=== PATIENT | female | born 1965 | race Caucasian/White ===

== ENCOUNTER 2017-05-29 09:06 | Outpatient (CLI) | payer BC ==
[~2017-05-29] VITALS: Ht 167.6 cm; Wt 63.0 kg
[~2017-05-29 09:06] MED LIST: ALPR.25T PO; BUTA1TAB55 PO; EST025TD PO; NFTRIAZ.25 PO
[2017-05-29] MEDS ORDERED: SUMA100T2 PO (09:52)
[2017-05-29] MEDS ORDERED: ZOLP10TA PO (09:52)
[2017-05-29] MEDS ORDERED: ALPR0.5T7 PO (09:52)
[2017-05-29] MEDS ORDERED: ESTR2TAB PO (09:52)
== END 2017-05-29 09:54 ==
LOC: PREOP 09:06
PROVIDERS: ATTEND Surgery
DX: Z01.818 Encounter for other preprocedural examination (principal); Z12.11 Encounter for screening for malignant neoplasm of colon

== ENCOUNTER 2017-05-31 12:05 | Day surgery (SDC) | payer BC ==
[~2017-05-31] VITALS: Ht 167.6 cm; Wt 63.0 kg
[~2017-05-31 12:05] MED LIST changes: +ALPR0.5T7 PO; +ESTR2TAB PO; +SUMA100T2 PO; +ZOLP10TA PO
[2017-05-31 12:10] VITALS: BP 131/89
--- OUTSIDE RECORDS SUMMARY | 2017-05-31 12:10 | XMS REPORT ---
Author Author MEERA GOLDBERG Organization [employer] Address Unknown Phone Unavailable Care Team Providers Care Acidizer Name Role Phone MEERA GOLDBERG CP Unavailable Allergies No Known Allergies Problems Problem Type Condition ICD-9 Code Onset Dates Condition Status Assessment Dental examination V72.2 Active Medications No Known Medications Procedures Procedure Coding System Code Date Periodontal maint procedures CPT-4 D4910 Feb 25, 2015 TOPICAL FLUORIDE VARNISH CPT-4 D1206 Feb 25, 2015 Results No Known Results Summary Purpose [employer] Submission
--- OUTSIDE RECORDS SUMMARY | 2017-05-31 12:10 | XMS REPORT ---
Author Author MEENA OBREGON Organization [employer] Address Unknown Phone Unavailable Care Team Providers Care Golf Cart Attendant Name Role Phone MEENA OBREGON Unavailable Allergies No Known Allergies Problems Problem Type Condition Code Onset Dates Condition Status Problem Encounter for dental examination Z01.20 Active Medications Medication Code System Code Instructions Start Date End Date Status Dosage Ibuprofen [facility] [address]-69 600 MG Orally every 6 hours October 31, 2015 1 tablet Results No Known Results Summary Purpose [employer] Submission
--- OUTSIDE RECORDS SUMMARY | 2017-05-31 12:10 | XMS REPORT ---
Author Author ANGELES MCINTYRE [facility] Address [address] [address] Phone Unavailable Care Team Providers Care Parking Enforcer Name Role Phone ANGELES MCINTYRE Unavailable Unavailable PROBLEMS Type Condition ICD9-CM Code GNE06-OS Code Onset Dates Condition Status SNOMED Code Problem Encounter for dental examination Z01.20 Active 418676717 Assessment Dental examination Z01.20 Feb, Active [id number] ALLERGIES Substance Reaction Event Type Date Status N.K.D.A. Unknown Non Drug Allergy Feb, Unknown SOCIAL HISTORY No smoking Hx information available PLAN OF CARE VITAL SIGNS Blood pressure systolic 114 mmHg 2016-02-17 Blood pressure diastolic 76 mmHg 2016-02-17 MEDICATIONS Medication Instructions Dosage Frequency Start Date End Date Duration Status Imitrex 100 MG Orally Twice a day 1 tablet as needed 12h Active Estradiol 2 MG Orally Once a day 1 tablet 24h Active Ibuprofen 600 MG Orally every 6 hours 1 tablet 6h October, Active RESULTS No Results PROCEDURES Procedure Date Ordered Related Diagnosis Body Site Periodontal maint procedures Feb 17, 2016 TOPICAL FLUORIDE VARNISH Feb 17, 2016 IMMUNIZATIONS No Known Immunizations
--- OUTSIDE RECORDS SUMMARY | 2017-05-31 12:10 | XMS REPORT ---
Author Author MEENA OBREGON Organization [employer] Address Unknown Phone Unavailable Care Team Providers Care Basic Acoustic Analyst Name Role Phone MEENA OBREGON CP Unavailable Allergies No Known Allergies Problems Problem Type Condition Code Onset Dates Condition Status Assessment Migraine aura, persistent, intractable G43.519 Active Problem Encounter for dental examination Z01.20 Active Medications Medication Code System Code Instructions Start Date End Date Status Dosage Imitrex [facility] [address]-74 25 MG Orally Twice a day October 31, 2015 1 tablet as needed Results No Known Results Summary Purpose [employer] Submission
--- NOTE | 2017-05-31 12:13 | Progress Note-Pre Operative ---
Pre-Operative Progress Note H&P Reviewed The H&P was reviewed, patient examined and no changes noted. Date Seen by Provider: May 31, 2017 Time Seen by Provider: 12:10 Date H&P Reviewed: May 31, 2017 Time H&P Reviewed: 12:10 Pre-Operative Diagnosis: screening colonoscopy JITENDRA VALVERDE MD May 31, 2017 12:13 pm
--- NOTE | 2017-05-31 12:13 | Conscious Sedation/ASA ---
Conscious Sedation Pre-Proced Time Reviewed: 12:10 ASA Class: 2 Airway Mallampati Classification: (bad river band appropriate class) I. II. III, IV Lungs Heart ASA score ASA 1: a normal healthy patient ASA 2: a patient with a mild systemic disease (mid diabetes, controlled hypertension, obesity ASA 3: a patient with a severe systemic disease that limits activity (angina , COPD, prior Myocardial infarction) ASA 4: a patient with an incapacitating disease that is a constant threat to life (CHF, renal failure) ASA 5: a moribund patient not expected to survive 24 hrs. (ruptured aneurysm) ASA 6: a declared brain patient whose organs are being harvested. For emergent operations, add the letter E after the classification Grade 2 Sedation Plan: Analgesia, Amnesia, Plan communicated to team members, Discussed options with patient/fam, Discussed risks with patient/fam Note The patient is an appropriate candidate to undergo the planned procedure, sedation, and anesthesia. The patient immediately re-assessed prior to indication. JITENDRA VALVERDE MD May 31, 2017 12:13 pm
[2017-05-31] MEDS ORDERED: LIDOCAINE JELLY 2% (XYLOCAINE) 5 ML TUBE MM PRN (12:15)
[2017-05-31] MEDS ORDERED: NS IV 500 ML 500 ML IV PRN (12:15)
[2017-05-31] MEDS ORDERED: morphine INJ 10 MG/ML 1ML (SYR OR VIAL) IV PRN (12:15)
[2017-05-31] MEDS ORDERED: ONDANSETRON 4 MG/2 ML (SDV) Z0FRAN IV PRN (12:15)
[2017-05-31] MEDS ORDERED: ACETAMINOPHEN 325 MG TABLET/CAPLET (TYLENOL) PO PRN (12:15)
[2017-05-31] MEDS ORDERED: HYDROcodone/APAP 5 MG/325 MG (LORTAB) TAB PO PRN (12:15)
[2017-05-31] MEDS ORDERED: NS IV 500 ML 500 ML ONE (12:17)
[2017-05-31] MEDS ORDERED: MIDAZOLAM 2 MG/2 ML (VERSED) VIAL ONE ×5 (13:08→13:52)
[2017-05-31] MEDS ORDERED: fentaNYL INJECTION 100 MCG/2 ML AMP ONE ×2 (13:09→13:27)
[2017-05-31] MEDS ORDERED: LIDOCAINE JELLY 2% (XYLOCAINE) 5 ML TUBE ONE (13:09)
[2017-05-31] MEDS: fentaNYL INJECTION 100 MCG/2 ML AMP IVP PRN ×4 (13:18→13:55)
[2017-05-31] MEDS: MIDAZOLAM 2 MG/2 ML (VERSED) VIAL IVP PRN ×5 (13:20→13:50)
[2017-05-31] MEDS ORDERED: proPOfol 200 MG/20 ML (DIPRIVAN) VIAL IV ONE (14:04)
--- NOTE | 2017-05-31 14:20 | Progress Note-Post Operative ---
Post-Operative Progess Note Surgeon (s)/Broomcorn Grader (s) Surgeon JITENDRA VALVERDE MD Broomcorn Grader: none Pre-Operative Diagnosis screening colonoscopy Post-Operative Diagnosis very mild sigmoid diverticulosis. Procedure & Operative Findings Date of Procedure 05/31/17 Procedure Performed/Findings Colonoscopy. Anesthesia Type MAC Estimated Blood Loss Estimated blood loss (mL): minimal Specimens/Packing Specimens Removed none JITENDRA VALVERDE MD May 31, 2017 2:20 pm
--- NOTE | 2017-05-31 14:21 | Discharge Inst-Surgical ---
D/C Lap Instructions-ABRAM Follow Up 10 yrs Activity as tolerated High Fiber Diet 25g or more per day Avoid Alcohol, Caffeine, Spicy [place] and Acid foods. Drink 64 fluid oz or more of fluids per day. Symptoms to Report: Fever over 101 degree F, Nausea/Vomiting If any problems/questions: Contact your physician or go to Emergency Room JITENDRA VALVERDE MD May 31, 2017 2:21 pm
[2017-05-31 14:25] VITALS: BP 105/73
--- NOTE | 2017-05-31 14:28 | Progress Note-Standard ---
Standard Progress Note Progress Notes/Assess & Plan Date Seen by Provider: May 31, 2017 Time Seen by Provider: 14:00 Final Diagnosis Called to Endo for rescue sedation. Report from RN. Propofol given for sedation 60mg. Tolerated procedure well. end [id number] LETHA GROVE CRNA May 31, 2017 14:27
[2017-05-31 14:40] VITALS: BP 108/77
[2017-05-31 14:55] VITALS: BP 108/77
--- NOTE | 2017-06-01 00:02 | OPERATIVE REPORT ---
DATE OF SERVICE: 05/31/2017 ATTENDING PRIMARY CARE PHYSICIAN: Jelani Munroe MD. PREOPERATIVE DIAGNOSIS: Screening colonoscopy. POSTOPERATIVE DIAGNOSIS: Mild or early sigmoid diverticulosis. PROCEDURE: Colonoscopy. SURGEON: Jitendra Valverde MD. ANESTHESIA: Monitored anesthesia care. ESTIMATED BLOOD LOSS: Minimal. FINDINGS: Mild or very early sigmoid diverticulosis. The remainder of the colon was normal. There were no polyps identified. DISPOSITION: The patient tolerated the procedure well. INDICATIONS: The patient is a 52-year-old female in need of a screening colonoscopy. She has not had a colonoscopy up to this point in her life. For the most part, she states she is doing well and does not report any major issues of diarrhea nor constipation as well as no red blood per rectum nor any dark tarry stools. DESCRIPTION OF PROCEDURE: The patient was brought to the endoscopy suite, laid in the left lateral decubitus position. After adequate IV pain and sedative medications and monitored anesthesia care administered by Anesthesia, a digital rectal examination was performed. No significant hemorrhoids were identified. Normal sphincter tone was felt and there were no palpable masses. The endoscope was then intubated to the anus and rectum and gently insufflated. The endoscope was then advanced to the valves of Restrepo of the rectum with no polyps or any neoplasms identified. We then proceeded through the sigmoid colon where very mild or early sigmoid diverticulosis again identified. The endoscope was then advanced to the remainder of the descending, transverse, ascending colon to the cecum. These segments were normal. There were no polyps or any neoplasms identified throughout the colon or rectum. The endoscope was then slowly withdrawn taking a second look and suctioning of residual air with no additional findings. The patient tolerated the procedure well. We will recommend continued medical management with a high fiber diet with at least 25 grams of fiber per day as well as at least 64 fluid ounces of water daily to promote soft stools on a daily basis. She does not need another colonoscopy for another 10 years. Job ID: [id number] DocumentID: [id number] Dictated Date: 05/31/2017 14:18:00 Hot Dip Galvanizer Date: 06/01/2017 00:01:11 Dictated By: JITENDRA VALVERDE MD
== END 2017-05-31 14:50 | disposition home or self-care (01) ==
LOC: ENDO 12:05
PROVIDERS: ATTEND Surgery
DX: Z12.11 Encounter for screening for malignant neoplasm of colon (principal); K57.30 Diverticulosis of large intestine without perforation or abscess without bleeding; G43.909 Migraine, unspecified, not intractable, without status migrainosus; F41.9 Anxiety disorder, unspecified; Z79.899 Other long term (current) drug therapy; Z87.891 Personal history of nicotine dependence

== ENCOUNTER → 2018-05-20 | Outpatient (CLI) | payer BC ==
--- NOTE | 2018-05-20 19:56 | Diagnostic Imaging Report ---
INDICATION: Routine screening. Comparison is made with prior mammogram from 09/22/2010. 2-D and 3-D bilateral screening mammography was performed with computer-aided detection (CAD) system. FINDINGS: Both breasts are heterogeneously dense, limiting the sensitivity of mammography. Numerous benign-appearing calcifications are seen throughout both breasts, similar to prior exam. Both breasts demonstrate somewhat of a fibronodular parenchymal pattern. No dominant mass or malignant-appearing microcalcifications are seen. The axillae are unremarkable. IMPRESSION: No mammographic features suspicious for malignancy are identified. ACR BI-RADS Category 2: Benign findings. Result letter will be mailed to the patient. Note: At least 10% of breast cancer is not imaged by mammography. Dictated by: Dictated on workstation # [id number]
== END ==
LOC: RAD 08:00
PROVIDERS: ATTEND Nurse Practitioner Family
DX: Z12.31 Encounter for screening mammogram for malignant neoplasm of breast (principal)
CPT/HCPCS: 77067

== ENCOUNTER → 2018-10-13 | Outpatient (CLI) | payer BC ==
--- NOTE | 2018-10-13 08:29 | Diagnostic Imaging Report ---
REASON FOR EXAM: ABDOMINAL DISTENSION. Abdominal pain. COMPARISON: CT from 09/22/2010. TECHNIQUE: Grayscale and Doppler ultrasound performed in the right upper quadrant of the abdomen to evaluate the liver and gallbladder. FINDINGS: The liver is normal in size and shape. The liver echogenicity is within normal limits. There are no focal lesions. No intrahepatic biliary dilatation is present. The common bile duct is not dilated and measures 5.7 mm. The main portal vein is hepatopedal. There is no evidence of cholelithiasis, gallbladder wall thickening or pericholecystic fluid. Sonographic Soriano's sign is negative. The visualized portion of the head of the pancreas are within normal limits. The body and tail of the pancreas are not well visualized due to overlying bowel gas. The right kidney measures approximately 11.4 cm in length and has a normal appearance. IMPRESSION: 1. No cholelithiasis or acute cholecystitis. No liver or gallbladder abnormality detected. Dictated by: Dictated on workstation # [id number]
== END ==
LOC: RAD 07:36
PROVIDERS: ATTEND Surgery
DX: R14.0 Abdominal distension (gaseous) (principal); R10.9 Unspecified abdominal pain
CPT/HCPCS: 76705

== ENCOUNTER → 2018-10-17 | Outpatient (CLI) | payer BC, OTHER ==
[~2018-10-17] MED LIST changes: +CATHETER FLUSH 10 ML SYR IV PRN; +ESCI5TAB PO; +PROP20TA5 PO
--- NOTE | 2018-10-17 18:43 | Diagnostic Imaging Report ---
EXAMINATION: Hepatobiliary Scan. DATE: October 17, 2018. INDICATION: 53-year-old female, abdominal pain and distention. COMPARISON: Right upper quadrant ultrasound, October 13, 2018. PROCEDURE: 5.41 mCi of Tc-99m choletec was administered intravenously and serial anterior planar images over the liver and upper abdomen were obtained. FINDINGS: There is homogenous activity throughout the liver with good clearance of background activity. This indicates good hepatocellular function. Biliary tree activity is seen at 15 minutes. The gallbladder is seen at 30 minutes. There is no enterogastric reflux. The biliary tree is patent. There is no evidence of acute cholecystitis. 8 ounces of Ensure was administered for calculation of gallbladder ejection fraction. Gallbladder ejection fraction was calculated to be 33%. IMPRESSION: 1. No evidence of acute cholecystitis or complete common bile duct obstruction. 2. Gallbladder ejection fraction measured just slightly below lower limits of normal which potentially can be seen in the setting of biliary dyskinesia and/or chronic cholecystitis. Dictated by: Dictated on workstation # [id number]
== END ==
LOC: CARD 09:48
PROVIDERS: ATTEND Surgery
DX: R14.0 Abdominal distension (gaseous) (principal)
CPT/HCPCS: 78227

== ENCOUNTER 2018-10-22 06:26 | Outpatient (CLI) | payer BC, OTHER ==
[~2018-10-22] VITALS: Ht 167.6 cm; Wt 63.0 kg
[~2018-10-22 06:26] MED LIST changes: -CATHETER FLUSH 10 ML SYR IV PRN; -ESCI5TAB PO; -PROP20TA5 PO
[2018-10-22] MEDS ORDERED: PROP20TA5 PO (12:13)
[2018-10-22] MEDS ORDERED: ESCI5TAB PO (12:13)
[2018-10-23] MEDS ORDERED: DOCU-143 PO (12:52)
[2018-10-23] MEDS ORDERED: ACHD5005 PO (12:52)
== END 2018-10-22 12:27 | disposition home or self-care (01) ==
LOC: PREOP 06:26
PROVIDERS: ATTEND Surgery
DX: Z01.818 Encounter for other preprocedural examination (principal)

== ENCOUNTER 2018-10-23 10:22 | Day surgery (SDC) | payer BC, OTHER ==
[2018-10-23] VITALS (9 sets, daily range): BP systolic 98–141; BP diastolic 65–91
[~2018-10-23] VITALS: Ht 167.6 cm; Wt 63.0 kg
[~2018-10-23 10:22] MED LIST changes: +ESCI5TAB PO; +PROP20TA5 PO
[2018-10-23 10:59] LABS: BASOPHILS % (AUTO) 1 % (0-10); EOSINOPHILS # (AUTO) 0.1 10^3/uL (0.0-0.3); EOSINOPHILS % (AUTO) 1 % (0-10); HEMATOCRIT 40 % (35-52); HEMOGLOBIN 13.4 G/DL (11.5-16.0); LYMPHOCYTES # (AUTO) 2.8 X 10^3 (1.0-4.0); LYMPHOCYTES % (AUTO) 48 % (12-44); MEAN CORPUSCULAR HEMOGLOBIN 30 PG (25-34); MEAN CORPUSCULAR HGB CONC 34 G/DL (32-36); MEAN CORPUSCULAR VOLUME 90 FL (80-99); MEAN PLATELET VOLUME 10.2 FL (7.4-10.4); MONOCYTES # (AUTO) 0.6 X 10^3 (0.0-1.0); MONOCYTES % (AUTO) 9 % (0-12); NEUTROPHILS # (AUTO) 2.5 X 10^3 (1.8-7.8); NEUTROPHILS % (AUTO) 42 % (42-75); PLATELET COUNT 330 10^3/uL (130-400); RED CELL DISTRIBUTION WIDTH 12.7 % (10.0-14.5)
[2018-10-23] MEDS ORDERED: ceFAZolin INJECTION 1,000 MG in WATER (STERILE) FOR INJECTION 10 ML IV ONE (11:00)
[2018-10-23] MEDS ORDERED: MIDAZOLAM 2 MG/2 ML (VERSED) VIAL IV ONE (11:00)
[2018-10-23] MEDS ORDERED: LACTATED RINGERS 1,000 ML IV SCH (11:30)
[2018-10-23] MEDS ORDERED: BUP/EPI 0.5% 1:200,000 (SENSORCAINE) 30 ML VIAL ONE (11:31)
[2018-10-23] MEDS ORDERED: LIDOCAINE 1% INJ 20 ML 20 ML VIAL ONE (11:31)
[2018-10-23] MEDS ORDERED: ceFAZolin INJECTION 1,000 MG ONE (11:56)
[2018-10-23] MEDS ORDERED: fentaNYL INJECTION 100 MCG/2 ML AMP ONE (11:59)
[2018-10-23] MEDS ORDERED: MIDAZOLAM 2 MG/2 ML (VERSED) VIAL ONE (12:00)
[2018-10-23] MEDS ORDERED: GLYCOPYRROLATE 0.2 MG/ML (ROBINUL) 2 ML VIAL ONE ×2 (12:35→12:44)
[2018-10-23] MEDS ORDERED: ROCURONIUM 10 MG/ML 5 ML SYRINGE IV ONE (12:35)
[2018-10-23] MEDS ORDERED: ATROPINE INJ 0.4 MG/ML SDV ONE (12:35)
[2018-10-23] MEDS ORDERED: proPOfol 200 MG/20 ML (DIPRIVAN) VIAL IV ONE (12:35)
[2018-10-23] MEDS ORDERED: DEXAMETHASONE 10 MG/ML (DECADRON) 1 ML VIAL ONE (12:35)
[2018-10-23] MEDS ORDERED: ONDANSETRON 4 MG/2 ML (SDV) Z0FRAN ONE (12:35)
[2018-10-23] MEDS ORDERED: LIDOCAINE PF 2% 5 ML (XYLOCAINE) VIAL ONE (12:35)
[2018-10-23] MEDS ORDERED: NEOSTIGMINE 1 MG/ML 5 ML SYRINGE ONE (12:35)
--- NOTE | 2018-10-23 12:50 | Progress Note-Post Operative ---
Post-Operative Progess Note Surgeon (s)/Apple Sorter (s) Surgeon CORINA ELDER DO Apple Sorter: Dr. Macias Pre-Operative Diagnosis BILIARY DYSKINESIA Post-Operative Diagnosis same Procedure & Operative Findings Date of Procedure 10/23/18 Procedure Performed/Findings lap jason c ioc Anesthesia Type gen Estimated Blood Loss Estimated blood loss (mL): min Specimens/Packing Specimens Removed gallbladder CORINA ELDER DO October 23, 2018 12:50
[2018-10-23] MEDS ORDERED: SEVOFLURANE (ULTANE) 15 ML INHAL SOLN ONE (12:52)
[2018-10-23] MEDS ORDERED: DOCU-143 PO (12:52)
[2018-10-23] MEDS ORDERED: ACHD5005 PO (12:52)
--- NOTE | 2018-10-23 12:53 | Discharge Inst-Simple/Standard ---
Discharge Inst-Standard Discharge Medications New, Converted or Re-Newed RX: RX on Chart Patient Instructions/Follow Up Plan of Care/Instructions/FU: 2 weeks Rich Activity as Tolerated: No Discharge Diet: Regular Diet Other Inst to Patient Follow up Appt: Make appointment for 2 weeks. Instructions: No lifting greater than 10 pounds. No strenuous activity. May shower in 24 hours, no tub bath or soaking. Use incentive spirometer at home as directed. No Smoking Skin/Wound Care: You have special glue over incisions it will fall off on its own. Symptoms to Report: Appetite Changes, Extremity Discoloration, Numbness/Tingling, Swelling Increased , Bleeding Excessive, Eyesight Changes, Pain Increased, Urine Color Change, Constipation(Persistent), Fever over 101 degree F, Pain/Pressure in chest, Urinating Difficulty, Cough Up/Vomit Blood, Heart Beat Irreg/Pounding, Pain/ Pressure in jaw, Vaginal Bleeding Increase, Cramps in feet or legs, Lightheadedness, Pain/Pressure in shoulder, Diarrhea(Persistent), Memory Changes Suddenly, Questions/Concerns, Weight gain consecutive days, Dizziness/ Fainting, Nausea/Vomiting, Shortness of Breath, Weight gain over 2 pounds. If eyes or skin turn yellow notify physician. If questions or concerns contact your physician Or seek help at emergency department. CORINA ELDER DO October 23, 2018 12:53
[2018-10-23] MEDS ORDERED: MEPERIDINE (DEMEROL) INJ 50 MG/ML IVP ONE (13:15)
[2018-10-23] MEDS ORDERED: ONDANSETRON 4 MG/2 ML (SDV) Z0FRAN IVP PRN (13:15)
[2018-10-23] MEDS: morphine INJ 10 MG/ML 1ML (SYR OR VIAL) IVP ONE (13:25)
--- NOTE | 2018-10-23 13:49 | Anesthesia-General Post-Op ---
General Patient Condition Mental Status/LOC: Same as Preop Cardiovascular: Satisfactory Nausea/Vomiting: Absent Respiratory: Satisfactory Pain: Controlled Complications: Absent Post Op Complications Complications None Follow Up Care/Instructions Patient Instructions None needed. Anesthesia/Patient Condition Patient Condition Patient is doing well, no complaints, stable vital signs, no apparent adverse anesthesia problems. No complications reported per nursing. AZAEL LANDON CRNA October 23, 2018 13:49
--- NOTE | 2018-10-23 21:02 | Diagnostic Imaging Report ---
INDICATION: Fluoroscopy during intraoperative cholangiogram. FINDINGS: Fluoroscopy was provided for Dr. Villanueva during intraoperative cholangiogram. 8 seconds of fluoroscopy was utilized. Images demonstrate contrast being injected via the cystic duct remnant. Intrahepatic and extrahepatic bile ducts are normal caliber. No filling defect is seen to suggest retained stone. Contrast is seen within the duodenum. IMPRESSION: Fluoroscopy during intraoperative cholangiogram. Dictated by: Dictated on workstation # [id number]
--- NOTE | 2018-10-24 02:30 | OPERATIVE REPORT ---
DATE OF SERVICE: 10/23/2018 PREOPERATIVE DIAGNOSIS: Biliary dyskinesia. POSTOPERATIVE DIAGNOSIS: Biliary dyskinesia. PROCEDURE: Laparoscopic cholecystectomy with intraoperative cholangiogram. SURGEON: Edson Villanueva DO CUT OUT WORKER: Dr. Macias, assisted in retraction, dissection and closure. ANESTHESIA: General. ESTIMATED BLOOD LOSS: Minimal. COMPLICATIONS: None. INDICATIONS: The patient is a 53-year-old female with workup and symptoms consistent with biliary dyskinesia. She understands risks and benefits of procedure and wished to proceed with procedure. Consent was signed in the chart. DESCRIPTION OF PROCEDURE: The patient was taken to the operating suite, was prepped and draped in sterile fashion. Surgical pause was performed. Local anesthetic was infiltrated above the umbilicus and an 11 blade scalpel was used to make a skin incision and cautery used to dissect down to the fascia, which was then scored, grasped and elevated and the abdomen was then entered. An 0 Vicryl was placed in a [id number] fashion for closure at the end of the case. A balloon trocar was inserted in the abdomen and pneumoperitoneum was achieved. Under direct visualization of the laparoscope, a 5 mm trocar was then placed in the subxiphoid region and two 5 mm trocars were placed in the right upper quadrant. The patient had multiple adhesions to the gallbladder, which were then taken down with blunt and cautery dissection. The gallbladder was then grasped and elevated. The cystic duct and cystic artery were then dissected out. Clips were placed on the proximal and distal portion of the cystic artery and clip was placed on the distal portion of the cystic duct. The duct was then partially transected. The Arrow catheter was inserted into the duct and cholangiogram was performed. There were no filling defects. Contrast made its way into the duodenum without difficulty. The catheter was then removed. Clips were placed on the proximal portion of the cystic duct and then the duct and artery were then completely transected. Hook cautery was used to dissect the gallbladder fossa and achieving hemostasis. Once completely removed, it was placed in an Endobag and removed through the 12 mm trocar site. The area was then irrigated and suctioned with copious amounts of irrigation. The abdomen was then desufflated, the trocars were removed. The 0 Vicryl was placed at the beginning of the case was then tied closing 12 mm fascial defect. The skin was then closed using 4-0 Monocryl in a subcuticular fashion. The abdomen was then washed and dried and Skin Affix was placed over the incisions. The patient tolerated procedure well without any complications. She was taken to recovery room in stable condition. Job ID: [id number] DocumentID: [id number] Dictated Date: 10/23/2018 20:24:44 Modern Dancer Date: 10/24/2018 02:29:29 Dictated By: DO RAY LYNCH
== END 2018-10-23 14:50 | disposition home or self-care (01) ==
LOC: SDC 10:22
PROVIDERS: ATTEND Surgery
DX: K81.1 Chronic cholecystitis (principal); K82.8 Other specified diseases of gallbladder; Z11.2 Encounter for screening for other bacterial diseases; I10 Essential (primary) hypertension; F41.9 Anxiety disorder, unspecified; F17.210 Nicotine dependence, cigarettes, uncomplicated; Z79.899 Other long term (current) drug therapy
CPT/HCPCS: 36415; 85025; 87081